=== PATIENT | male | born 1975 | race Caucasian/White ===

== ENCOUNTER 2021-04-19 10:46 | Emergency (ER) | payer OTHER ==
[2021-04-19 11:23] LABS: BASOPHIL 1.3 % (0-2); EOSINOPHIL 1.6 % (0-5); HGB 12.6 g/dl (13.2-18.0); LYMPHOCYTE 18.6 % (15-48); MCH 36.1 pg (25.0-31.0); MCHC 33.2 g/dL (32.0-36.0); MCV 108.9 fL (78.0-100.0); MONOCYTE 10.1 % (0-12); NEUTROPHIL 67.2 % (41-80); NRBC 0; PLT 285 K/uL (150-400); RBC 3.49 M/uL (4.70-6.00); RDW 12.2 % (11.5-14.0); WBC 10.4 K/uL (4.0-10.5)
[2021-04-19 12:57] LABS: ALBUMIN 4.1 g/dL (3.4-5.0); ALKALINE PHOSHATASE 73 U/L (46-116); ALT 58 U/L (16-63); AST 46 U/L (15-37); BILIRUBIN - TOTAL 0.5 mg/dL (0.2-1.0); BUN 22 mg/dL (7-18); CHLORIDE 99 mmol/L (98-107); CO2 (BICARBONATE) 19 mmol/L (21-32); GLOBULIN (CALCULATION) 3.2 g/dL; GLUCOSE 137 mg/dL (74-106); POTASSIUM 3.7 mmol/L (3.5-5.1); TOTAL PROTEIN 7.3 g/dL (6.4-8.2)
[2021-04-19 13:56] LABS: BILIRUBIN NEGATIVE (NEGATIVE); BLOOD NEGATIVE Ery/uL (NEGATIVE); CLARITY CLEAR (CLEAR); COLOR YELLOW (YELLOW); GLUCOSE (U) NORMAL (NORMAL); LEUKOCYTES NEGATIVE Leu/uL (NEGATIVE); NITRITE NEGATIVE (NEGATIVE); PROTEIN NEGATIVE (NEGATIVE); SPECIFIC GRAVITY 1.025 (1.001-1.030); UROBILINOGEN 0.2 mg/dL (0.2-1.0); pH 5.5 (5.0-9.0)
[2021-04-19 13:59] LABS: ECSTASY (MDMA) NEGATIVE (NEGATIVE); MARIJUANA (THC) NEGATIVE (NEGATIVE); METHADONE NEGATIVE (NEGATIVE); OPIATES NEGATIVE (NEGATIVE)
[2021-04-19 14:00] LABS: AMPHETAMINES NEGATIVE (NEGATIVE); BARBITURATES NEGATIVE (NEGATIVE); OXYCODONE NEGATIVE (NEGATIVE)
== END 2021-04-19 17:36 | disposition home or self-care (01) ==
LOC: FER 10:46
PROVIDERS: Internal Medicine
DX: F10.239 Alcohol dependence with withdrawal, unspecified (principal); R56.9 Unspecified convulsions; N17.9 Acute kidney failure, unspecified; F17.220 Nicotine dependence, chewing tobacco, uncomplicated; Y90.0 Blood alcohol level of less than 20 mg/100 ml
CPT/HCPCS: 36415; 70450; 72125; 80053; 80305; 81003; 82565; 85025; 93005; G0480; J2060; J3411; J3475; J7030